=== PATIENT | male | born 1975 | race Caucasian/White ===

== ENCOUNTER 2018-02-24 20:49 | Observation (INO) | payer OTHER ==
[2018-02-24 21:01] VITALS: BMI 34.7
--- NOTE | 2018-02-24 21:42 | ED PDOC ---
HPI: Chest Pain History Per: Patient <GarrettYumikograce - Last Filed: 02/24/18 22:53> <Juli Garcia - Last Filed: 02/25/18 16:10> Time Seen by Provider: 02/24/18 21:14 Chief Complaint (Nursing): Chest Pain Additional Complaint(s): 43 year old male presents with complaints of left arm pain for past 24 hours, was seen in urgent care. EKG done there was abnormal so he was sent to ED. Left arm pain is persistent, not improved with topical voltaren. He has no complaints of head, jaw, neck or chest pain at this time. May have had some chest pain earlier. Does note he had some sweating about 2 hours ago. Seen in urgent care center just prior to arrival. No inciting event for left arm pain. He is sitting comfortably in bed. Mother has history of valvular disease. He denies personal history of heart disease or DC. PMD: none (Imer Tucker) Supervising Attending Note - Supervising Attending Note The Documented history was done by the: Physician Digital Asset Coordinator, Attending Physician The documented physical exam was done by the: Physician Digital Asset Coordinator, Attending Physician The documented procedures were done by the: Physician Digital Asset Coordinator, Attending Physician - Attestation: I have personally seen and examined this patient.: Yes I have fully participated in the care of the patient.: Yes I have reviewed all pertinent clinical information: Yes <Juli Garcia - Last Filed: 02/25/18 16:10> Past Medical History - Family History Family History: States: Other Other Family History: valvular heart disease - mother <Imer Tucker - Last Filed: 02/24/18 22:53> Reviewed: Historical Data, Nursing Documentation, Vital Signs - Medical History PMH: No Chronic Diseases - Surgical History Surgical History: No Surg Hx <Juli Garcia - Last Filed: 02/25/18 16:10> Vital Signs: Last Vital Signs Temp 97.5 F L 02/25/18 08:13 Pulse 55 L 02/25/18 09:00 Resp 18 02/25/18 08:13 BP 125/66 02/25/18 08:13 Pulse Ox 99 02/25/18 08:13 - Allergies Allergies/Adverse Reactions: Allergies Allergy/AdvReac Type Severity Reaction Status Date / Time No Known Allergies Allergy Verified 02/24/18 21:00 TERESO Risk Score for UA/NSTEMI - TERESO Risk Score Age > 64: NO 3 or more CAD Risk Factors: NO Known CAD (Stenosis greater than 50%): NO Aspirin use in past 7 days: YES Severe Angina: YES EKG ST changes greater than 0.5mm: NO Positive Cardiac Marker: NO TERESO Score: 2 Risk %: 8% <Juli Garcia - Last Filed: 02/25/18 16:10> Wells Criteria for PE - Wells Criteria for Pulmonary Embolism Clinical Signs and Symptoms of DVT: No P.E is #1 Diagnosis, or Equally Likely: No Heart Rate >100: No Immobilization at least 3 days;Surgery previous 4 weeks: No Previous, objectively diagnosed PE or DVT: No Hemoptysis: No Malignancy w/treatment within 6 months, or palliative: No Total Score: 0 <Juli Garcia - Last Filed: 02/25/18 16:10> Review of Systems Constitutional: Positive for: Sweats. Negative for: Fever, Chills Cardiovascular: Positive for: Chest Pain. Negative for: Palpitations, Orthopnea , Light Headedness Respiratory: Negative for: Cough, Shortness of Breath, SOB with Exertion Gastrointestinal: Negative for: Nausea, Vomiting, Abdominal Pain Genitourinary Male: Negative for: Dysuria Musculoskeletal: Positive for: Shoulder Pain (left), Arm Pain (left). Negative for: Neck Pain Neurological: Negative for: Weakness, Numbness, Incoordination, Altered Mental Status <Imer Tucker - Last Filed: 02/24/18 22:53> ROS Statement: Except As Marked, All Systems Reviewed And Found Negative <Juli Garcia - Last Filed: 02/25/18 16:10> Physical Exam - Physical Exam Appears: Positive for: Well, Non-toxic, No Acute Distress Head Exam: Positive for: ATRAUMATIC, NORMAL INSPECTION, NORMOCEPHALIC Neck: Positive for: Normal, Painless ROM Cardiovascular/Chest: Positive for: Regular Rate, Rhythm. Negative for: Murmur , Bradycardia, Tachycardia Respiratory: Positive for: Normal Breath Sounds. Negative for: Wheezing, Respiratory Distress Gastrointestinal/Abdominal: Negative for: Tenderness, Distended Extremity: Positive for: Normal ROM. Negative for: Tenderness, Pedal Edema Neurologic/Psych: Positive for: Alert, product sales engineer II-XII, Oriented <Imer Tucker - Last Filed: 02/24/18 22:53> - Laboratory Results Result Diagrams: 02/24/18 21:59 02/24/18 21:59 - ECG ECG: Positive for: Viewed By Me O2 Sat by Pulse Oximetry: 97 <Imer Tucker - Last Filed: 02/24/18 22:53> - Laboratory Results Result Diagrams: 02/24/18 21:59 02/24/18 21:59 <Juli Garcia - Last Filed: 02/25/18 16:10> - Progress ED Course And Treament: 43 year old male with left shoulder/arm pain for past 24 hours, abnormal EKG, rule out ACS EKG: NSR, no acute ST changes, right bundle branch block --CBC --BMP --COAGS --EKG --TROPONIN --ASA 325MG case d/w Dr. Garcia Labs reviewed. Troponin negative. Still has left sided pain. Will admit for observation, rule out ACS. Pt seen and examined with Dr. Garcia. (Imer Tucker) Disposition - Disposition Disposition Time: 22:55 - Pt Status Changed To: Hospital Disposition Of: Observation <Imer Tucker - Last Filed: 02/24/18 22:53> - Patient ED Disposition Is Patient to be Admitted: Yes Discussed With : Pranav Crawford Doctor Will See Patient In The: Hospital Counseled Patient/Family Regarding: Studies Performed, Diagnosis - Pt Status Changed To: Hospital Disposition Of: Observation - POA Present On Arrival: None Core Measure Indicators: Chest Pain <Juli Garcia - Last Filed: 02/25/18 16:10> - Clinical Impression Clinical Impression: Chest pain, Left arm pain - Disposition Condition: FAIR
[2018-02-24 22:04] LABS: BASO # 0.1 K/uL (0.0-0.2); BASO % 0.8 % (0.0-2.0); EOS # 0.1 K/uL (0.0-0.7); EOS % 1.1 % (0.0-4.0); HEMOGLOBIN 14.6 g/dL (12.0-18.0); LYMPH % 43.5 % (20.0-40.0); MEAN CELL VOLUME 94.5 fl (80.0-94.0); MEAN CORPUSCULAR HEMOGLOBIN 31.6 pg (27.0-31.0); MEAN CORPUSCULAR HGB CONC 33.5 g/dL (33.0-37.0); MEAN PLATELET VOLUME 10.6 fl (7.2-11.7); MONO # 0.6 K/uL (0.0-0.8); MONO % 8.3 % (0.0-10.0); NEUT # 3.2 K/uL (1.8-7.0); NEUT % 46.3 % (50.0-75.0); RBC 4.62 Mil/uL (4.40-5.90); RED CELL DISTRIBUTION WIDTH 13.4 % (11.5-14.5); WHITE BLOOD COUNT 6.9 K/uL (4.8-10.8)
[2018-02-24 22:14] LABS: BLOOD UREA NITROGEN 18 mg/dl (9-20); GFR AFRICAN-AMERICAN > 60; GFR NON-AFRICAN AMERICAN > 60
[2018-02-24 22:24] LABS: PARTIAL THROMBOPLASTIN TIME 32.6 Seconds (25.6-37.1); PROTHROMBIN TIME 11.1 Seconds (9.8-13.1)
[2018-02-24 22:28] LABS: BARBITURATES, UR NEGATIVE (NEGATIVE); BENZODIAZEPINES, UR NEGATIVE (NEGATIVE); OPIATES, UR NEGATIVE (NEGATIVE); PHENCYCLIDINE, UR NEGATIVE (NEGATIVE)
[2018-02-25 00:36] VITALS: RESP 18
[2018-02-25 08:14] VITALS: BP 125/66; TEMP 97.5; O2SAT 99
--- NOTE | 2018-02-25 09:42 | RAD ---
HISTORY: chest pain COMPARISON: No prior. FINDINGS: LUNGS: No active pulmonary disease. PLEURA: No significant pleural effusion identified, no pneumothorax apparent. CARDIOVASCULAR: Normal. OSSEOUS STRUCTURES: No significant abnormalities. VISUALIZED UPPER ABDOMEN: Normal. OTHER FINDINGS: None. IMPRESSION: No acute cardiopulmonary disease appreciated.
[2018-02-25 11:00] VITALS: PULSE 55
--- NOTE | 2018-02-25 15:21 | CP.PCM.HP ---
History of Present Illness - History of Present Illness History of Present Illness: This is a 43 y/o male admitted for 1st episode of chest pain which happened while at rest. He has no significant medical hx and not on any medication. Denies any SOB. Has no fever. Present on Admission - Present on Admission Any Indicators Present on Admission: No History of DVT/PE: No History of Uncontrolled Diabetes: No Urinary Catheter: No Decubitus Ulcer Present: No Past Patient History - Past Medical History & Family History Past Medical History?: No - Past Social History Smoking Status: Former Smoker - CARDIAC Hx Cardiac Disorders: No - PULMONARY Hx Respiratory Disorders: No - NEUROLOGICAL Hx Neurological Disorder: No - HEENT Hx HEENT Problems: No - RENAL Hx Chronic Kidney Disease: No - ENDOCRINE/METABOLIC Hx Endocrine Disorders: No - HEMATOLOGICAL/ONCOLOGICAL Hx Blood Disorders: No - INTEGUMENTARY Hx Dermatological Problems: No - MUSCULOSKELETAL/RHEUMATOLOGICAL Hx Falls: No - GENITOURINARY/GYNECOLOGICAL Hx Genitourinary Disorders: No - PSYCHIATRIC Hx Substance Use: No - SURGICAL HISTORY Hx Surgeries: Yes Hx Herniorrhaphy: Yes - ANESTHESIA Hx Anesthesia: Yes Hx Anesthesia Reactions: No Hx Malignant Hyperthermia: No Meds Home Medications: Home Medication List Medication Instructions Recorded Confirmed Type Famotidine [Pepcid] 40 mg PO DAILY #30 tablet 02/25/18 Rx Ibuprofen [Motrin Tab] 800 mg PO TID PRN #60 tab 02/25/18 Rx Allergies/Adverse Reactions: Allergies Allergy/AdvReac Type Severity Reaction Status Date / Time No Known Allergies Allergy Verified 02/24/18 21:00 Physical Exam - Head Exam Head Exam: NORMAL INSPECTION - Eye Exam Eye Exam: Normal appearance - ENT Exam ENT Exam: Mucous Membranes Moist - Respiratory Exam Respiratory Exam: Clear to Auscultation Bilateral - Cardiovascular Exam Cardiovascular Exam: REGULAR RHYTHM - GI/Abdominal Exam GI & Abdominal Exam: Normal Bowel Sounds - Rectal Exam Rectal Exam: NORMAL INSPECTION - Psychiatric Exam Psychiatric exam: Normal Mood Results - Vital Signs Recent Vital Signs: Last Vital Signs Temp 97.5 F L 02/25/18 08:13 Pulse 55 L 02/25/18 09:00 Resp 18 02/25/18 08:13 BP 125/66 02/25/18 08:13 Pulse Ox 99 02/25/18 08:13 - Labs Result Diagrams: 02/24/18 21:59 02/24/18 21:59 Labs: Laboratory Results - last 24 hr 02/24/18 02/24/18 02/24/18 21:59 21:59 21:59 WBC 6.9 RBC 4.62 Hgb 14.6 Hct 43.7 MCV 94.5 H MCH 31.6 H MCHC 33.5 RDW 13.4 Plt Count 178 MPV 10.6 Neut % (Auto) 46.3 L Lymph % (Auto) 43.5 H Kent % (Auto) 8.3 Eos % (Auto) 1.1 Baso % (Auto) 0.8 Neut # (Auto) 3.2 Lymph # (Auto) 3.0 Kent # (Auto) 0.6 Eos # (Auto) 0.1 Baso # (Auto) 0.1 PT 11.1 INR 1.0 APTT 32.6 Sodium 143 Potassium 4.1 Chloride 102 Carbon Dioxide 29 Anion Gap 16 BUN 18 Creatinine 0.9 Est GFR ( Amer) > 60 Est GFR (Non-Af Amer) > 60 Random Glucose 101 Calcium 10.0 Troponin I < 0.0120 Urine Opiates Screen Urine Methadone Screen Ur Barbiturates Screen Ur Phencyclidine Scrn Ur Amphetamines Screen U Benzodiazepines Scrn U Oth Cocaine Metabols U Cannabinoids Screen 02/24/18 02/25/18 21:59 06:20 WBC RBC Hgb Hct MCV MCH MCHC RDW Plt Count MPV Neut % (Auto) Lymph % (Auto) Kent % (Auto) Eos % (Auto) Baso % (Auto) Neut # (Auto) Lymph # (Auto) Kent # (Auto) Eos # (Auto) Baso # (Auto) PT INR APTT Sodium Potassium Chloride Carbon Dioxide Anion Gap BUN Creatinine Est GFR ( Amer) Est GFR (Non-Af Amer) Random Glucose Calcium Troponin I < 0.0120 Urine Opiates Screen Negative Urine Methadone Screen Negative Ur Barbiturates Screen Negative Ur Phencyclidine Scrn Negative Ur Amphetamines Screen Negative U Benzodiazepines Scrn Negative U Oth Cocaine Metabols Negative U Cannabinoids Screen Negative Assessment & Plan (1) Chest pain Status: Acute - Assessment and Plan (Free Text) Plan: Advised complete cardiac work up but patient decides to leave EKG and troponin are both normal advised follow up[ in my office in 1 week.
--- NOTE | 2018-02-25 15:36 | CP.PCM.DIS ---
Provider - Provider Date of Admission: 02/24/18 22:54 Attending physician: Pranav Crawford MD Diagnosis - Discharge Diagnosis (1) Chest pain Status: Acute Hospital Course - Lab Results Lab Results: Most Recent Lab Values WBC 6.9 K/uL (4.8-10.8) 02/24/18 21:59 RBC 4.62 Mil/uL (4.40-5.90) 02/24/18 21:59 Hgb 14.6 g/dL (12.0-18.0) 02/24/18 21:59 Hct 43.7 % (35.0-51.0) 02/24/18 21:59 MCV 94.5 fl (80.0-94.0) H 02/24/18 21:59 MCH 31.6 pg (27.0-31.0) H 02/24/18 21:59 MCHC 33.5 g/dL (33.0-37.0) 02/24/18 21:59 RDW 13.4 % (11.5-14.5) 02/24/18 21:59 Plt Count 178 K/uL (130-400) 02/24/18 21:59 MPV 10.6 fl (7.2-11.7) 02/24/18 21:59 Neut % (Auto) 46.3 % (50.0-75.0) L 02/24/18 21:59 Lymph % (Auto) 43.5 % (20.0-40.0) H 02/24/18 21:59 Mcclain % (Auto) 8.3 % (0.0-10.0) 02/24/18 21:59 Eos % (Auto) 1.1 % (0.0-4.0) 02/24/18 21:59 Baso % (Auto) 0.8 % (0.0-2.0) 02/24/18 21:59 Neut # (Auto) 3.2 K/uL (1.8-7.0) 02/24/18 21:59 Lymph # (Auto) 3.0 K/uL (1.0-4.3) 02/24/18 21:59 [place]clain # (Auto) 0.6 K/uL (0.0-0.8) 02/24/18 21:59 Eos # (Auto) 0.1 K/uL (0.0-0.7) 02/24/18 21:59 Baso # (Auto) 0.1 K/uL (0.0-0.2) 02/24/18 21:59 PT 11.1 Seconds (9.8-13.1) 02/24/18 21:59 INR 1.0 (0.9-1.2) 02/24/18 21:59 APTT 32.6 Seconds (25.6-37.1) 02/24/18 21:59 Sodium 143 mmol/l (132-148) 02/24/18 21:59 Potassium 4.1 MMOL/L (3.6-5.0) 02/24/18 21:59 Chloride 102 mmol/L (98-107) 02/24/18 21:59 Carbon Dioxide 29 mmol/L (22-30) 02/24/18 21:59 Anion Gap 16 (10-20) 02/24/18 21:59 BUN 18 mg/dl (9-20) 02/24/18 21:59 Creatinine 0.9 mg/dl (0.8-1.5) 02/24/18 21:59 Est GFR ( Amer) > 60 02/24/18 21:59 Est GFR (Non-Af Amer) > 60 02/24/18 21:59 Random Glucose 101 mg/dL (75-110) 02/24/18 21:59 Calcium 10.0 mg/dL (8.4-10.2) 02/24/18 21:59 Troponin I < 0.0120 ng/mL (0.00-0.120) 02/25/18 06:20 Urine Opiates Screen Negative (NEGATIVE) 02/24/18 21:59 Urine Methadone Screen Negative (NEGATIVE) 02/24/18 21:59 Ur Barbiturates Screen Negative (NEGATIVE) 02/24/18 21:59 Ur Phencyclidine Scrn Negative (NEGATIVE) 02/24/18 21:59 Ur Amphetamines Screen Negative (NEGATIVE) 02/24/18 21:59 U Benzodiazepines Scrn Negative (NEGATIVE) 02/24/18 21:59 U Oth Cocaine Metabols Negative (NEGATIVE) 02/24/18 21:59 U Cannabinoids Screen Negative (NEGATIVE) 02/24/18 21:59 - Hospital Course Hospital Course: This is a 43ny/o male admitted for chest pain while at rest. He has no risk factors but sought ER eval due to persistent pain. Initial labs showed normal troponin and EKG. He complained of left shoulder pain. Discharge Exam - Head Exam Head Exam: NORMAL INSPECTION - Eye Exam Eye Exam: Normal appearance - Respiratory Exam Respiratory Exam: NORMAL BREATHING PATTERN - Cardiovascular Exam Cardiovascular Exam: REGULAR RHYTHM - GI/Abdominal Exam GI & Abdominal Exam: Normal Bowel Sounds Discharge Plan - Discharge Medications Prescriptions: Ibuprofen [Motrin Tab] 800 mg PO TID PRN #60 tab PRN Reason: Pain, Moderate (4-7) Famotidine [Pepcid] 40 mg PO DAILY #30 tablet - Follow Up Plan Condition: STABLE Disposition: HOME/ ROUTINE Instructions: Chest Pain (DC) Referrals: Pranav Crawford MD [Staff Provider] -
--- NOTE | 2018-02-26 11:35 | CARD ---
APPROVED REPORT EKG Measurement Heart [id number] ID [id number] <Conclusion> Sinus bradycardia Incomplete right bundle branch block Borderline ECG
== END 2018-02-25 11:20 | disposition home or self-care (01) ==
LOC: H.ER 20:49 → H.ERHOLD 22:54 → H.TEL 02-25 00:08
PROVIDERS: ADMIT Family Medicine; ATTEND Family Medicine
DX: R07.9 Chest pain, unspecified (principal); M25.512 Pain in left shoulder; Z87.891 Personal history of nicotine dependence
CPT/HCPCS: 36415; 71045; 80048; 80324; 80345; 80346; 80349; 80353; 80358; 80361; 83992; 84484; 85025; 85610; 85730; 93005; 99285; G0378